=== PATIENT | male | born 1960 | race Caucasian/White ===

== ENCOUNTER 2017-03-13 14:50 | Inpatient (IN) | payer OTHER ==
[~2017-03-13] VITALS: Ht 180.3 cm; Wt 132.8 kg
--- NOTE | ~2017-03-13 | CT98 ---
[facility] A Service of [facility] RADIOLOGY TEXT RESULTS PATIENT: SHANTELL OSORIO LOCATION: [facility] 337-01 : [birth year] UNIT #: [id number] AGE: [address]: JOSE BAXTER V SEX: M ORDER DR: [id number] [facility] [address] [place], [place] [address] [id number] I MR#: [id number] Acc #: [id number] NAME: SHANTELL OSORIO : 1960 SEX: M STUDY DATE/TIME: 03/16/2017 18:58 UNIT: [address] ROOM: [facility] STUDY DESCRIPTION: CT Lumbar Spine Wo Cont Attending Physician: Jose Baxter M.D. Ordering Physician: Tanesha Forrest M.D. Primary Care Physician: No Primary Care Physician MEDICAL IMAGING REPORT This report is preliminary unless electronic signature is present EXAM Lumbar spine CT, 03/16 at 18:58. INDICATIONS Patient fell in room today and is having low back pain and tenderness. TECHNIQUE Axial images were obtained through the lumbar spine without contrast. Multiplanar reformats were obtained. This CT exam was performed with one or more of the following radiation dose reduction techniques: automatic exposure control, adjustment of mA and/or kV according to patient size, and iterative reconstruction. COMPARISON Comparison made with reformatted CT images from 08/28/2016. FINDINGS The patient is status post lumbar fusion. No hardware is present. There is a stable sclerotic lesion in the right side of S1. No acute fractures are seen. There is fairly extensive osteophyte formation. IMPRESSION Extensive degenerative disease and postsurgical change. No acute fracture or subluxation. Dictated by... Milan Pineda Jr., M.D. THIS IS AN ELECTRONICALLY VERIFIED REPORT Milan Pineda Jr., M.D. at 03/17/2017 4:12 PM SANDEEP/kyra [facility] A Service of [facility] RADIOLOGY TEXT RESULTS PATIENT: SHANTELL OSORIO LOCATION: [place] [id number] : [birth year] UNIT #: [id number] AGE: [address]: JOSE BAXTER V SEX: M ORDER DR: TD: 03/17/2017 00:00 JOB #: [id number] MEDICAL IMAGING REPORT Page 1 of 1 COPY
--- NOTE | ~2017-03-13 | CR72 ---
[facility] A Service of [facility] & [facility] RADIOLOGY TEXT RESULTS PATIENT: SHANTELL OSORIO LOCATION: [place] [address]- : 60 UNIT #: [id number] AGE: [address]: FERNANDEZ BAXTERUJ V SEX: M ORDER DR: [id number] [facility] [address] [place], [place] [address] [id number] I MR#: [id number] Acc #: [id number] NAME: SHANTELL OSORIO. : 1960 SEX: M STUDY DATE/TIME: 03/13/2017 23:19 UNIT: [facility] ROOM: [facility] STUDY DESCRIPTION: CR Chest Single View Portable Attending Physician: Tanesha Forrest M.D. Ordering Physician: Zhao Cordero M.D. Primary Care Physician: Primary Care Physician No MEDICAL IMAGING REPORT This report is preliminary unless electronic signature is present EXAM Portable chest x-ray, 03/13/2017 HISTORY PICC placement. Cough, short of air, chest pain. FINDINGS AP radiograph of the chest is present. Comparison 03/13/2017 1608 hours. Right upper extremity approach PICC terminates in superior vena cava. Heart borderline enlarged. Lungs slightly lower in volume than on prior study. Pulmonary vasculature is mildly prominent. Increased interstitial and airspace densities bilateral lung bases. Some component may be atelectatic in nature given the lower lung volumes. Basilar edema or bibasilar pneumonitis is a consideration. Findings more pronounced on left than right. Small left pleural effusion. No pneumothorax. Dictated by... Froilan Gutiérrez M.D. THIS IS AN ELECTRONICALLY VERIFIED REPORT Froilan Gutiérrez M.D. at 03/15/2017 1:22 PM JORGE/merly TD: 03/14/2017 02:24 JOB #: [id number] MEDICAL IMAGING REPORT Page 1 of 1 COPY
--- NOTE | ~2017-03-13 | CO ---
Unit #: [id number] #: [id number] Patient: SHANTELL OSORIO [id number] [address] [place], [place] [address] [id number] I MR#: [id number] NAME: SHANTELL OSORIO. ROOM: [facility]IC3 Age: 56 Sex: M Admission Date: 03/13/2017 : 1960 Attending Physician: Nigel Tan M.D. Primary Care Physician: Sabi Primary Care Physician Consultation Date: 03/14/2017 CONSULTATION REPORT REASON FOR CONSULT ICU management. HISTORY OF PRESENT ILLNESS This is a 56-year-old male with past medical history significant for morbid obesity, sleep apnea, COPD, chronic hypoxic respiratory failure who presented to the emergency room with worsening shortness of breath for the last few days. Patient stated that he was moving from another town to [place] and he forgot to bring his oxygen, and he has been off his oxygen for the last three days. He is coughing and sometimes with productive sputum of light greenish. He denied any fever, chills, or night sweats. No chest pain. No nausea, vomiting, or diarrhea. Patient takes Lasix and he is faithful with his medication; however, he is not so much with his diet. In the emergency room, his chest x-ray was consistent with interstitial infiltrate concerning for pulmonary versus pulmonary edema versus atelectasis. PAST MEDICAL HISTORY 1. Chronic hypoxic respiratory failure. 2. COPD. 3. Obstructive sleep apnea. 4. Morbid obesity. 5. Chronic kidney disease. 6. Depression. 7. Benign prostatic hypertrophy. 8. Pancreatitis. 9. Diabetes. 10. Hypertension. PAST SURGICAL HISTORY 1. Left heart cath. 2. Back surgery. 3. Appendectomy. 4. Knee surgery. 5. Cholecystectomy. SOCIAL HISTORY Patient is currently living with his sister. He has a history of smoking three packs of cigarettes daily, but he has cut back to half pack. He denies any alcohol abuse. He walks with a cane. His code status is full and no history of street drug abuse. Unit #: [id number] #: [id number] Patient: SHANTELL OSORIO FAMILY HISTORY Lung cancer. ALLERGIES No known drug allergies. HOME MEDICATIONS 1. Flomax. 2. Amitriptyline. 3. Zantac. 4. Potassium. 5. Pantoprazole. 6. Spiriva. 7. Levemir. 8. Humalog. 9. Lasix. 10. Finasteride. 11. Zestril. 12. Metformin. 13. Lopressor. 14. Prednisone. 15. ProAir. REVIEW OF SYSTEMS A 12-point review of systems was obtained and were negative except for what was mentioned in the HPI. PHYSICAL EXAMINATION GENERAL: The patient currently feeling better, in no acute distress compared to yesterday. HEENT: Atraumatic, normocephalic. PERRLA. EOMI. NECK: Supple. No JVD. No lymphadenopathy. CHEST: Diffuse bilateral wheezing and rhonchi. HEART: S1, S2. No murmur, gallops, or rubs. ABDOMEN: Soft, nontender. Bowel sounds are positive. No hepatosplenomegaly. EXTREMITIES: No edema or cyanosis but patient has chronic venous stasis changes. SKIN: No rashes. CENTRAL NERVOUS SYSTEM: Awake, alert, oriented x3. No focal motor/sensory deficits. DIAGNOSTIC STUDIES LABORATORY: Creatinine 1.5, potassium 3.9. White blood count 8. IMAGING: Chest x-ray is noted and reviewed by me. ASSESSMENT 1. Acute on chronic hypoxic hypercarbic respiratory failure. 2. Acute exacerbation of chronic obstructive pulmonary disease. 3. Acute kidney injury. 4. Obstructive sleep apnea. 5. Morbid obesity. 6. Nicotine abuse. 7. Depression. 8. Prostatic hypertrophy. Unit #: [id number] #: [id number] Patient: SHANTELL OSORIO PLAN 1. Continue the patient on BiPAP and (1) as tolerated. 2. Will hold Lasix and hydrate gently as patient appears more on the dehydrated side. 3. IV steroid bronchodilator. 4. Will change Levaquin to azithromycin as I suspect patient has a pneumonia based on his normal procalcitonin, normal white blood counts, and lack of fever. His chest x-ray is not very suggestive of pneumonia; however, will need to continue watching him very closely. 5. Bronchodilator and mucolytics. 6. CPAP at night. 7. Deep venous thrombosis prophylaxis. I would like to thank you for allowing me to be a part of this patient's care. Dictated by... Yaya Fairchild M.D. Divya TD: 03/14/2017 13:02 JOB #: [id number] CONSULTATION REPORT Page 1 of 1 X YAYA MORENO MD CONSULTATION REPORT
--- NOTE | ~2017-03-13 | CR72 ---
[facility] A Service of [facility] RADIOLOGY TEXT RESULTS PATIENT: SHANTELL OSORIO LOCATION: [place] [address]- : [birth year] UNIT #: [id number] AGE: [address]: FERNANDEZ BAXTERUJ V SEX: M ORDER DR: [id number] [facility] [address]. [place], [place] [address] [id number] I MR#: [id number] Acc #: [id number] NAME: SHANTELL OSORIO. : 1960 SEX: M STUDY DATE/TIME: 03/13/2017 16:08 UNIT: [facility] ROOM: 24[address] STUDY DESCRIPTION: CR Chest Single View Portable Attending Physician: Tanesha Forrest M.D. Ordering Physician: Zhao Cordero M.D. Primary Care Physician: Primary Care Physician No MEDICAL IMAGING REPORT This report is preliminary unless electronic signature is present EXAM Portable chest HISTORY Shortness of air chest pain. Shortness of air for 3 days, chest pain over the last hour. Longstanding smoker. COMPARISON 08/25/2016 FINDINGS Portable view of the chest demonstrates left basilar atelectasis and a small amount of right basilar atelectasis. Heart and mediastinum unremarkable. No significant effusions. No pneumothorax. Dictated by... Carissa Montes M.D. THIS IS AN ELECTRONICALLY VERIFIED REPORT Carissa Montes M.D. at 03/15/2017 4:02 PM CHARISSE/gudelia TD: 03/13/2017 19:04 JOB #: [id number] MEDICAL IMAGING REPORT Page 1 of 1 COPY
--- NOTE | ~2017-03-13 | CT107 ---
[facility] A Service of [facility] RADIOLOGY TEXT RESULTS PATIENT: SHANTELL OSORIO LOCATION: [facility] 337 : [birth year] UNIT #: [id number] AGE: [address]: JOSE BAXTER V SEX: M ORDER DR: [id number] [facility] [address]. [place], [place] [address] [id number] I MR#: [id number] Acc #: [id number] NAME: SHANTELL OSORIO. : 1960 SEX: M STUDY DATE/TIME: 03/16/2017 18:58 UNIT: [address] ROOM: [facility] STUDY DESCRIPTION: CT Pelvis Wo Cont Attending Physician: Jose Baxter M.D. Ordering Physician: Tanesha Forrest M.D. Primary Care Physician: Primary Care Physician No MEDICAL IMAGING REPORT This report is preliminary unless electronic signature is present EXAM CT pelvis without contrast HISTORY Bilateral pelvic pain after fall today. TECHNIQUE This CT exam was performed with one or more of the following radiation dose reduction techniques: automatic control, adjustment of mA and/or kV according to patient size, and iterative reconstruction. FINDINGS CT pelvis without contrast demonstrates satisfactory bone alignment. No fracture. Kevr-gs-aarfjvpw degenerative changes in the hips bilaterally and in the sacroiliac joints. Postop changes in the partly visualized lumbar spine. Degenerative changes in the pubic symphysis. IMPRESSION 1. No acute findings. No fracture. 2. Multifocal qfcd-er-wyryqddc degenerative changes. Dictated by... Tye Ruvalcaba M.D. THIS IS AN ELECTRONICALLY VERIFIED REPORT Tye Ruvalcaba M.D. at 03/17/2017 8:39 PM DFL/gudelia TD: 03/17/2017 00:06 JOB #: [id number] MEDICAL IMAGING REPORT [facility] A Service of [facility] RADIOLOGY TEXT RESULTS PATIENT: SHANTELL OSORIO LOCATION: [facility] 337 : [birth year] UNIT #: [id number] AGE: [address]: JOSE BAXTER V SEX: M ORDER DR: Page 1 of 1 COPY
--- NOTE | ~2017-03-13 | EKG ---
PATIENT: SHANTELL OSORIO UNIT #: [id number] Ventricular Rate: 113 BPM Atrial Rate: 113 BPM P-R Interval: 126 ms QRS Duration: 72 ms Q-T Interval: 328 ms QTC Calculation(Bezet): 449 ms P [place]: 63 degrees Calculated R [place]: 33 degrees Calculated T [place]: 64 degrees Diagnosis Line: Sinus tachycardia Diagnosis Line: Otherwise normal ECG Diagnosis Line: Diagnosis Line: Confirmed by VERONICA MENDOZA MD ([id number]) on 03/14/2017 Diagnosis Line: 7:38:09 PM INTERPRETING MD: REJI LIANG
--- NOTE | ~2017-03-13 | HP ---
Unit #: [id number] #: [id number] Patient: SHANTELL OSORIO [id number] [place] [address]. [place], [place] [address] [id number] I MR#: [id number] NAME: SHANTELL OSORIO. ROOM: 08147 Age: 56 Sex: M Admission Date: 03/13/2017 : 1960 Attending Physician: Tanesha Forrest M.D. HISTORY AND PHYSICAL CHIEF COMPLAINT Shortness of breath, chest pain. HISTORY OF PRESENT ILLNESS The patient is a 56-year-old male with a past medical history of chronic respiratory failure, COPD, chronic kidney disease, obstructive sleep apnea, chronic back pain, BPH, depression, pancreatitis, diabetes, and hypertension, who presented to the emergency department for evaluation of the above. The patient was hospitalized at [facility] December 16-2016, for COPD exacerbation. The patient states that he returned to baseline. He apparently moved to [place] over the weekend. He did not have home oxygen set up. He is typically on three liters of oxygen per nasal cannula. He has been without oxygen for several days. He has had about a three-day history of increasing shortness of breath and nonproductive cough. He denies any fever. Today, he developed chest pain. It is in his mid chest. He describes it as "squeezing." There are no exacerbating or alleviating factors. He states that it is similar to when he has had pancreatitis in the past. The pain radiates to his abdomen. He is somewhat diaphoretic in association with the pain. He denies any vomiting, but he has had nausea. He denies any urinary symptoms and no change in his weight. In the emergency department, initial pulse and blood pressure were 115 and 114/95, respectively, oxygen saturation was 91% on three liters. Chest x-ray shows left base atelectasis. EKG shows sinus tachycardia with a rate of 113 beats per minute. Lactic acid was 2.5. Initial arterial blood gas showed a pH of 7.38, PCO2 of 61.1, and PO2 of 62.9 on three liters. He was placed on BiPAP. He also received one liter of normal saline, as well as 125 mg of Solu-Medrol and 4 mg of morphine. He is being admitted to [facility] for evaluation and further treatment. PAST MEDICAL HISTORY 1. Admission to [facility] December 16-2016, for COPD. 2. Admission to [facility] August 24-2016, for abdominal pain and COPD. 3. Chronic obstructive pulmonary disease requiring intubation in the past. The patient has seen Dr. Self here at [facility]. 4. Chronic respiratory failure on three liters of oxygen per nasal cannula continuous. Unit #: [id number] #: [id number] Patient: SHANTELL OSORIO 5. Obstructive sleep apnea, on CPAP. 6. Chronic back pain, status post intrathecal pain pump, followed by Dr. Marquez. 7. Chronic kidney disease appears to be stage 3 with a baseline creatinine around 1.2. The patient had a rn care transition in [place] but is not established here. 8. Depression. 9. Benign prostatic hypertrophy. 10. Pancreatitis. 11. Diabetes. 12. Hypertension. PAST SURGICAL HISTORY 1. Cardiac catheterization in August 2015 per records from [facility]. Details of the cardiac cath are not known. The patient denies any coronary artery disease. 2. Back surgery. 3. Intrathecal pain pump. 4. Appendectomy. 5. Knee surgery. 6. Cholecystectomy. SOCIAL HISTORY The patient is currently living with his sister. He has a history of smoking three packs of cigarettes daily but has cut back to a half pack. He denies alcohol use. He walks with a cane. His code status is a Full Code. FAMILY HISTORY Notable for his mother and father both having lung cancer. ALLERGIES No known allergies. HOME MEDICATIONS 1. Flomax 0.4 mg twice daily. 2. Amitriptyline 150 mg daily. 3. Zantac 150 mg twice daily. 4. Potassium 20 mEq daily. 5. Pantoprazole 40 mg daily. 6. Spiriva 2 puffs inhaled daily. 7. Levemir 80 units subcutaneous twice daily. 8. Humalog 35 units subcutaneous t.i.d. 9. Lasix 40 mg daily. 10. Finasteride 5 mg daily. 11. Zestril 5 mg daily. 12. Glucophage 500 mg twice daily. 13. Lopressor 50 mg twice daily. 14. Prednisone 5 mg daily. 15. ProAir 2 puffs q.6 hours p.r.n. REVIEW OF SYSTEMS A complete review of systems is negative except as indicated in the History of Present Illness. The patient denies a history of heart failure. He denies any change in his weight. He states that his blood sugars are typically in the 100s. PHYSICAL EXAMINATION Unit #: [id number] #: [id number] Patient: SHANTELL OSORIO VITAL SIGNS: Temperature is 98.1, pulse 115, respirations 20, blood pressure 114/95, and oxygen saturation 91% on 3 liters. GENERAL: Patient is a male who is currently on BiPAP. HEENT: Head is atraumatic. Mucous membranes are moist. NECK: Supple. Trachea is midline. CARDIOVASCULAR: Regular rate and rhythm. LUNGS: Scattered wheezes and rhonchi. Breathing is mildly labored with conversation. ABDOMEN: Obese, soft, and nontender with bowel sounds present in all four quadrants. EXTREMITIES: Nontender with no pedal edema. NEUROLOGIC: Patient is awake and alert. He follows commands. PSYCHIATRIC: Patient is somewhat anxious but cooperative. SKIN: Diaphoretic. DIAGNOSTIC STUDIES LABORATORY: Complete blood count notable for hemoglobin and hematocrit of 12.4 and 38.5, respectively, MCV is 79, and RDW 20.9. Arterial blood gas shows a pH of 7.38, PCO2 of 61.1, and PO2 of 62.9 on 3 liters of oxygen per nasal cannula. Most recent arterial blood gas shows a pH of 7.328, PCO2 of 66.4, and PO2 of 86.6 on BiPAP at 12/5 with an FIO2 of 60%. Troponin is less than 0.05. INR is 1. Comprehensive metabolic panel notable for a chloride of 97, CO2 of 34, glucose 169, and BUN and creatinine 24 and 1.5, respectively. Lactic acid is 2.5. BNP is 8. IMAGING: Chest x-ray shows left base atelectasis. CARDIOLOGY: EKG shows sinus tachycardia with a rate of 113 beats per minute. ASSESSMENT The patient is a 56-year-old male with: 1. Acute on chronic respiratory failure, hypoxic and hypercapnic. 2. Chronic obstructive pulmonary disease exacerbation. The patient received 125 mg of Solu-Medrol in the emergency department. He continues to smoke. 3. Chest pain. The patient had a cardiac catheterization in August 2015 (no records). EKG and cardiac enzymes thus far are negative. 4. Lactic acidosis. The patient's lactic acid is 2.5. 5. Chronic kidney disease stage 3 with a baseline creatinine around 1.2. 6. Obstructive sleep apnea, on CPAP. 7. Chronic back pain, status post intrathecal pain pump, followed by Dr. Marquez. 8. Benign prostatic hypertrophy. 9. Depression. 10. History of pancreatitis. 11. Diabetes. 12. Hypertension. PLAN 1. Admit to ICU. 2. N.p.o. except medications. 3. Normal saline at 75 mL/hour. 4. Repeat blood gas now. 5. Consult Dr. Self regarding acute on chronic respiratory failure. 6. DuoNebs q.4 hours. 7. Solu-Medrol 80 mg IV q.12 hours. 8. Mucinex 600 mg p.o. b.i.d. Unit #: [id number] #: [id number] Patient: SHANTELL OSORIO 9. Levaquin 750 mg IV daily for possible clinical pneumonia pending further workup. 10. Procalcitonin level. 11. Sepsis protocol with repeat lactic acid. 12. Check amylase and lipase. 13. Serial cardiac enzymes. 14. Strict I/Os. 15. Urinalysis with culture and sensitivity. 16. Urine toxicology screen. 17. Hemoglobin A1c. 18. Low-dose sliding scale insulin with Accu-Cheks. 19. Protonix for GI prophylaxis since the patient will be on Solu-Medrol. 20. SCDs for DVT prophylaxis. 21. Additional workup and consultants based on above. 22. Regarding code status, the patient is a Full Code. Forty-five (45) minutes critical care time spent in the care of this patient (5:50-6:35 p.m.). Dictated by Jose Bird/may TD: 03/13/2017 20:20 JOB #: [id number] HISTORY AND PHYSICAL Page 1 of 1 X Tanesha Forrest MD HISTORY AND PHYSICAL
[~2017-03-13 14:50] MED LIST: AMITRYPTYLINE PO; ASPIRIN81 M2 PO; BACTRIM DS TABL1 TA1 PO; BREO ELLIPTA 11 EACH INH; DOCUSATE SODIU100 MG PO; FLEXERIL10 MG PO; FLOMAX0.4 M1 PO; GLUCOPHAGE500 M1 PO; HUMALOG100 U/M1; HYDROCODON-ACE1 EAC7 PO; K-LOR20 MEQ PO; LASIX PO; LEVEMIR SUBQ; LISINOPRIL-HCTZ1 T15 PO; LOPID600 MG PO; LOPRESSOR PO; LOVENOX40 MG/0.4 INJ; METFORMIN HCL1000 M1 PO; MIRALAX17 GM PO; PREDNISONE10 MG PO; PREVACID SOLUTA30 MG PO; PRINIVIL5 MG PO; PROAIR RESPICL90 MCG INH; PROTONIX PO; PROVENTIL INH0.5 ML NEB; SYMBICORT INH; TOPROL XL 50 MG50 MG PO; VOLTAREN75 MG PO; XANAX0.5 M1 PO; ZANTAC150 MG PO
[2017-03-13 15:48] LABS: BASOPHIL% 0.6 % (0-2.5); EOSINOPHIL# 0.1 X10e3 (0-0.7); EOSINOPHIL% 0.7 % (0.0-7.0); HEMATOCRIT 38.5 % (38.0-50.0); HEMOGLOBIN 12.4 gm/dL (13.0-16.0); LYMPHOCYTE# 1.3 X10e3 (1.0-3.5); LYMPHOCYTE% 15.7 % (17.0-45.0); MEAN CORPUSCULAR HEMOGLOBIN 25.5 PG (28-34); MEAN CORPUSCULAR HGB CONC 32.3 g/dL (30-36); MEAN PLATELET VOLUME 8.5 FL (6.5-11.5); MONOCYTE# 0.5 X10e3 (0-1.0); MONOCYTE% 5.9 % (3.0-12.0); NEUTROPHIL# 6.1 X10e3 (1.5-7.1); NEUTROPHIL% 77.1 % (40-75); PLATELET COUNT 167 X10e3 (140-420); RED BLOOD COUNT 4.87 X10e (3.90-5.60); RED CELL DISTRIBUTION WIDTH 20.9 % (11.0-15.5)
[2017-03-13 15:49] LABS: ARTERIAL BLD GAS O2 SATURATION 84.4 % (90.0-100.0); ARTERIAL BLOOD GAS CARBOXY HB 7.3 %sat (0.0-9.0); ARTERIAL BLOOD GAS HCO3 36.1 mmol/L; ARTERIAL BLOOD GAS MET HB 1.2 %sat (0.0-2.0)
[2017-03-13 15:50] LABS: DIFF IND NO
[2017-03-13 15:51] LABS: ARTERIAL BLOOD GAS ALLEN TEST NORMAL; ARTERIAL BLOOD GAS ART SITE RIGHT RADIAL; ARTERIAL BLOOD GAS DELIVERY NASAL CANNULA; ARTERIAL BLOOD GAS PCO2 61.1 mmHg (35.0-45.0); ARTERIAL BLOOD GAS PO2 62.9 mmHg (80.0-100); ARTERIAL DRAW? YES
[2017-03-13 15:58] LABS: POC - CKMB 4.9 ng/mL (0.0-7.9); POC - TROPONIN <0.05 ng/mL (<=0.05)
[2017-03-13 16:02] LABS: PARTIAL THROMBOPLASTIN TIME 22.4 SECONDS (23.5-31.3); PROTHROMBIN TIME (PATIENT) 10.6 SECONDS (10.0-11.7)
[2017-03-13 16:12] LABS: ALBUMIN SERUM 4.3 g/dL (3.5-5.0); BILIRUBIN, DIRECT 0.1 mg/dL (0.0-0.2); BILIRUBIN,INDIRECT 0.4 mg/dL (0.0-0.9); BILIRUBIN,TOTAL 0.5 mg/dL (0.2-2.0); CREATININE SERUM 1.5 mg/dL (0.6-1.4); GLOM FILT RATE Estimated 51.3 mL/min (>60); POTASSIUM 4.3 mmol/L (3.5-5.1)
[2017-03-13] MEDS ORDERED: PATIENT'S PHARMACY (16:23)
[2017-03-13] MEDS ORDERED: AMITRIPTYLINE150 MG PO (16:24)
[2017-03-13] MEDS ORDERED: FLOMAX0.4 M1 PO (16:24)
[2017-03-13] MEDS ORDERED: PANTOPRAZOLE SO40 MG PO (16:24)
[2017-03-13] MEDS ORDERED: ZANTAC150 M1 PO (16:24)
[2017-03-13] MEDS ORDERED: KCL PO (16:24)
[2017-03-13] MEDS ORDERED: LASIX20 MG PO (16:25)
[2017-03-13] MEDS ORDERED: HUMALOG KW100 UNIT/1 SUBQ (16:25)
[2017-03-13] MEDS ORDERED: LEVEMIR FL100 UNIT/1 SUBQ (16:25)
[2017-03-13] MEDS ORDERED: SPIRIVA RESPIMAT4 G1 INH (16:25)
[2017-03-13] MEDS ORDERED: PREDNISONE PO (16:26)
[2017-03-13] MEDS ORDERED: PROAIR RESPICL90 MCG INH (16:26)
[2017-03-13] MEDS ORDERED: METFORMIN PO (16:26)
[2017-03-13] MEDS ORDERED: LISINOPRIL PO (16:26)
[2017-03-13] MEDS ORDERED: FINASTERIDE5 M1 PO (16:26)
[2017-03-13] MEDS ORDERED: LOPRESSOR PO (16:26)
[2017-03-13 17:15] LABS: ARTERIAL BLD GAS O2 SATURATION 89.9 % (90.0-100.0); ARTERIAL BLOOD GAS CARBOXY HB 5.7 %sat (0.0-9.0); ARTERIAL BLOOD GAS HCO3 34.8 mmol/L; ARTERIAL BLOOD GAS MET HB 0.7 %sat (0.0-2.0); ARTERIAL BLOOD GAS PO2 86.6 mmHg (80.0-100); ARTERIAL BLOOD GAS pH 7.328 (7.350-7.450)
[2017-03-13 17:16] LABS: ARTERIAL BLOOD GAS ALLEN TEST NORMAL; ARTERIAL BLOOD GAS ART SITE RIGHT RADIAL; ARTERIAL BLOOD GAS PCO2 66.4 mmHg (35.0-45.0); ARTERIAL DRAW? YES
[2017-03-13 17:23] LABS: POC - CKMB 3.3 ng/mL (0.0-7.9); POC - TROPONIN <0.05 ng/mL (<=0.05)
[2017-03-13 18:59] LABS: ARTERIAL BLOOD GAS CARBOXY HB 4.2 %sat (0.0-9.0); ARTERIAL BLOOD GAS HCO3 35.3 mmol/L; ARTERIAL BLOOD GAS MET HB 0.6 %sat (0.0-2.0); ARTERIAL BLOOD GAS pH 7.329 (7.350-7.450)
[2017-03-13 19:00] LABS: ARTERIAL BLOOD GAS ALLEN TEST NORMAL; ARTERIAL BLOOD GAS ART SITE RIGHT RADIAL; ARTERIAL BLOOD GAS DELIVERY 15/5; ARTERIAL BLOOD GAS PCO2 67.2 mmHg (35.0-45.0); ARTERIAL DRAW? YES
[2017-03-13 19:28] LABS: PROCALCITONIN 0.17 NG/ML
[2017-03-14 01:36] LABS: %MB 2.9 % (0.0-4.0); MB 4.6 ng/ml
[2017-03-14 02:04] LABS: URINE APPEARANCE CLEAR; URINE BILIRUBIN NEG (NEG); URINE BLOOD NEG (NEG); URINE COLOR YELLOW; URINE GLUCOSE NEG (NEG); URINE KETONE NEG (NEG); URINE LEUKOCYTE ESTERASE NEG (NEG); URINE NITRATE NEG (NEG); URINE PROTEIN NEG (NEG); URINE SPECIFIC GRAVITY 1.021 (1.003-1.035); URINE UROBILINOGEN 0.2 MG/DL (NEG)
[2017-03-14 02:18] LABS: AMPHETAMINE NEG (NEG); BARBITURATES NEG (NEG); BENZODIAZEPINES NEG (NEG); COCAINE NEG (NEG); MARIJUANA NEG (NEG); OPIATES POS (NEG); TRICYCLIC ANTIDEPRESSANTS POS (NEG); U METHADONE NEG (NEG)
[2017-03-14 06:24] LABS: DIFF IND NO; HEMATOCRIT 34.2 % (38.0-50.0); HEMOGLOBIN 10.9 gm/dL (13.0-16.0); LYMPHOCYTE# 0.4 X10e3 (1.0-3.5); LYMPHOCYTE% 5.4 % (17.0-45.0); MEAN CELL VOLUME 79.4 FL (83-96); MEAN CORPUSCULAR HEMOGLOBIN 25.4 PG (28-34); MEAN CORPUSCULAR HGB CONC 31.9 g/dL (30-36); MEAN PLATELET VOLUME 8.6 FL (6.5-11.5); MONOCYTE# 0.1 X10e3 (0-1.0); MONOCYTE% 1.7 % (3.0-12.0); NEUTROPHIL# 7.3 X10e3 (1.5-7.1); NEUTROPHIL% 92.9 % (40-75); PLATELET COUNT 132 X10e3 (140-420); RED BLOOD COUNT 4.31 X10e (3.90-5.60); RED CELL DISTRIBUTION WIDTH 21.2 % (11.0-15.5); WHITE BLOOD COUNT 7.9 X10e3 (4.0-10.5)
[2017-03-14 07:15] LABS: ALBUMIN SERUM 3.4 g/dL (3.5-5.0); BILIRUBIN,TOTAL 0.6 mg/dL (0.2-2.0); CALCIUM SERUM 7.9 mg/dL (8.4-10.2); GLOM FILT RATE Estimated 83.8 mL/min (>60); POTASSIUM 3.9 mmol/L (3.5-5.1); PROTEIN TOTAL SERUM 6.7 g/dL (6.0-8.3)
[2017-03-14 07:43] LABS: %MB 3.7 % (0.0-4.0); MB 4.7 ng/ml
[2017-03-15 14:11] LABS: ARTERIAL BLOOD GAS CARBOXY HB 1.5 %sat (0.0-9.0); ARTERIAL BLOOD GAS HCO3 28.8 mmol/L
[2017-03-15 14:13] LABS: ARTERIAL BLOOD GAS ALLEN TEST NORMAL; ARTERIAL BLOOD GAS ART SITE LEFT RADIAL; ARTERIAL BLOOD GAS DELIVERY NASAL CANNULA; ARTERIAL BLOOD GAS PCO2 52.3 mmHg (35.0-45.0); ARTERIAL DRAW? YES
[2017-03-19] MEDS ORDERED: PERCOCET 5/321 UDTAB PO (12:05)
[2017-03-19] MEDS ORDERED: PREDNISONE10 M1 PO (12:06)
== END 2017-03-19 13:13 | disposition home or self-care (01) | DRG 189 ==
LOC: CED 14:50 → CEDOF 18:30 → CICCU3 18:30 → C3A PCU 18:30 → CED 18:58 → CICCU3 18:58 → CEDOF 18:58 → CICCU3 23:47 → C3A PCU 03-14 18:20
PROVIDERS: Emergency Medicine; Family Medicine; Internal Medicine
PROC: 02HV33Z Insertion of Infusion Device into Superior Vena Cava, Percutaneous Approach (ICD-10-PCS; principal; 2017-03-13)
DX: J96.21 Acute and chronic respiratory failure with hypoxia (principal); E87.2 Acidosis; E11.22 Type 2 diabetes mellitus with diabetic chronic kidney disease; N17.9 Acute kidney failure, unspecified; N18.3 Chronic kidney disease, stage 3 (moderate); J44.1 Chronic obstructive pulmonary disease with (acute) exacerbation; J96.22 Acute and chronic respiratory failure with hypercapnia; I12.9 Hypertensive chronic kidney disease with stage 1 through stage 4 chronic kidney disease, or unspecified chronic kidney disease; G47.33 Obstructive sleep apnea (adult) (pediatric); G89.29 Other chronic pain; M54.9 Dorsalgia, unspecified; N40.0 Benign prostatic hyperplasia without lower urinary tract symptoms; F32.9 Major depressive disorder, single episode, unspecified; E11.65 Type 2 diabetes mellitus with hyperglycemia; Z79.4 Long term (current) use of insulin; F17.210 Nicotine dependence, cigarettes, uncomplicated; E66.01 Morbid (severe) obesity due to excess calories; Z68.36 Body mass index [BMI] 36.0-36.9, adult; Z90.49 Acquired absence of other specified parts of digestive tract; Z80.1 Family history of malignant neoplasm of trachea, bronchus and lung
CPT/HCPCS: 36415; 36600; 71010; 72131; 72192; 80048; 80053; 80076; 80307; 81003; 82150; 82308; 82550; 82553; 82803; 82947; 83036; 83605; 83690; 83880; 84484; 85025; 85610; 85730; 87040; 87086; 93005; 94640; 94660; 94664; 94667; 94668; 94760; 94761; 96361; 96374; 96375; 97162; 97167; 99291; C9113; J0456; J1170; J1650; J1815; J1885; J1940; J1956; J2270; J2920; J2930; J3360

== ENCOUNTER 2017-03-23 21:47 | Inpatient (IN) | payer OTHER ==
[~2017-03-23] VITALS: Ht 172.7 cm; Wt 120.2 kg
--- NOTE | ~2017-03-23 | DS ---
Unit #: [id number] #: [id number] Patient: SHANTELL OSORIO [id number] [address] [place], [place] [address] [id number] I MR#: [id number] NAME: SHANTELL OSORIO. ROOM: 568 Age: 56 Sex: M Admission Date: 03/24/2017 : 1960 Discharge Date: 03/26/2017 Attending Physician: Rekha Thibodeaux M.D. Primary Care Physician: No Primary Care Physician DISCHARGE SUMMARY FINAL DIAGNOSES 1. Suicidal attempt. 2. Aspiration pneumonia. 3. Acute respiratory failure. SECONDARY DIAGNOSES 1. Diabetes mellitus type 2 on insulin. 2. Morbid obesity. 3. Chronic back pain. 4. History of depression. 5. Hypertension. 6. BPH. CONSULTANTS Dr. Cowart, Psych; Dr. Self, Pulmonary. HOSPITAL COURSE 56-year-old gentleman who is well known to me basically, really got frustrated at his life situation and took an overdose of pills intentionally. He was brought to the ER via EMS when family put a call through. In the emergency room, and was found to be agitated, eventually underwent protected airways and was subsequently intubated. He is extubated now and seems to be doing very well. He is able to test reality and admits to the attempts. He admits to the attempts. He has been seen by Dr. Cowart and the plan is for him [facility] He is evaluated and seemed to be suitable for discharge. Labs patent this a.m. His sugars are really on the high side. Back pain: He has a pain pump in situ. He has a remote control, which he uses to dose himself p.r.n. on demand dosing for his increased pain requirements. He feel about a week ago. CT scan of his lumbar spine does not show any fractures. He will be discharged in stable condition for inpatient stay in patient psych unit. MEDICATIONS ON DISCHARGE 1. Albuterol sulfate inhaler, two inhalation q.6 hourly p.r.n. wheezing. 2. DuoNeb q.4 hours p.r.n. 3. Prednisone 40 mg p.o. daily for five days and then taper. 4. Flomax 0.4 mg p.o. b.i.d. 5. Spiriva two puffs inhalation daily. 6. Neurontin 200 mg p.o. 3 times a day. 7. Amitriptyline 150 mg p.o. daily. 8. Cymbalta 30 mg p.o. daily. Unit #: [id number] #: [id number] Patient: SHANTELL OSORIO 9. Metformin 500 mg p.o. b.i.d. 10. Lopressor 50 mg p.o. b.i.d. 11. Lasix 40 mg p.o. daily. 12. Lisinopril 5 mg p.o. daily. 13. Levemir 80 units subcu b.i.d. 14. Humalog 35 units subcu t.i.d. q. a.c. 15. Zantac 150 mg p.o. b.i.d. 16. Finasteride 5 mg p.o. daily. 17. Percocet 5/325 1 every 4 hours as needed for back pain. 18. Augmentin 5/125 p.o. t.i.d. for 4 more days. 19. Protonix 40 mg p.o. daily. 20. Zyprexa 5 mg sublingual at bedtime. DISCHARGE STATUS Stable condition to [facility]. Time spent coordinating discharge about 33 minutes. He will be seen by psych prior to discharge and pulmonary prior to discharge. 21. 1. Dictated by... Jose Gregorio/dione TD: 03/26/2017 08:38 JOB #: [id number] DISCHARGE SUMMARY Page 1 of 1 X Daisha Shah MD X DISCHARGE SUMMARY
--- NOTE | ~2017-03-23 | EKG ---
PATIENT: SHANTELL OSORIO UNIT #: [id number] Ventricular Rate: 123 BPM Atrial Rate: 123 BPM P-R Interval: 166 ms QRS Duration: 92 ms Q-T Interval: 308 ms QTC Calculation(Bezet): 440 ms P [place]: 51 degrees Calculated R [place]: 38 degrees Calculated T [place]: 71 degrees Diagnosis Line: Sinus tachycardia Diagnosis Line: Poor R wave progression questionable lead position Diagnosis Line: or body habitus Diagnosis Line: Cannot rule out Septal infarct , age undetermined Diagnosis Line: Borderline ECG Diagnosis Line: When compared with ECG of 23-MAR-2017 21:51, Diagnosis Line: (unconfirmed) Diagnosis Line: No significant change was found Diagnosis Line: Confirmed by VERONICA MENDOZA MD ([id number]) on 03/25/2017 Diagnosis Line: 2:59:03 PM INTERPRETING MD: REJI LIANG
--- NOTE | ~2017-03-23 | DS ---
Unit #: [id number] #: [id number] Patient: SHANTELL OSORIO [id number] [address] [address] [id number] I MR#: [id number] NAME: SHANTELL OSORIO. ROOM: 568 Age: 56 Sex: M Admission Date: 03/24/2017 : 1960 Discharge Date: 03/27/2017 Attending Physician: Rekha Thibodeaux M.D. Primary Care Physician: No Primary Care Physician DISCHARGE SUMMARY ADDENDUM PLACE OF DISCHARGE [facility] HOSPITAL COURSE Please see Dr. Shah's discharge as dictated on March 26 for complete details. Essentially, for the past 24 hours, patient has been otherwise stable. He has been weaned off of his oxygen. Room air oxygen should be greater than 89%, which likely represents his baseline. Patient can be transferred to [facility] with pain pump in place. Instructions have been reviewed and discussed with him in detail. No further recommendations and/or inpatient hospitalization is required at this particular time. Dictated by... Jose Patel/tess TD: 03/29/2017 07:36 JOB #: [id number] DISCHARGE SUMMARY Page 1 of 1 X Rekha Thibodeaux MD X DISCHARGE SUMMARY
--- NOTE | ~2017-03-23 | CR72 ---
[facility] A Service of [facility] & [facility] RADIOLOGY TEXT RESULTS PATIENT: SHANTELL OSORIO LOCATION: [address] : [birth year] UNIT #: [id number] AGE: [address]: Rekha Thibodeaux MD SEX: M ORDER DR: [id number] [facility] [address] [facility]. [place], [place] [address] [id number] I MR#: [id number] Acc #: [id number] NAME: SHANTELL OSORIO. : 1960 SEX: M STUDY DATE/TIME: 03/24/2017 04:26 UNIT: [facility] ROOM: [facility] STUDY DESCRIPTION: CR Chest Single View Portable Attending Physician: Rekha Thibodeaux M.D. Ordering Physician: Edwardo Amador M.D. Primary Care Physician: No Primary Care Physician MEDICAL IMAGING REPORT This report is preliminary unless electronic signature is present EXAM Portable chest, 03/24/2017 at 04:26. INDICATIONS Shortness of air. Respiratory failure. FINDINGS AP portable chest compared with 03/23/2017. ET tube and left IJ line are unchanged. Cardiomegaly stable. There is persistent bibasilar atelectasis or infiltrate and small bilateral effusions. No pneumothorax. Dictated by... Milan Pineda Jr., M.D. THIS IS AN ELECTRONICALLY VERIFIED REPORT Milan Pineda Jr., M.D. at 03/25/2017 4:57 AM SANDEEP/kyra TD: 03/24/2017 23:50 JOB #: [id number] MEDICAL IMAGING REPORT Page 1 of 1 COPY
--- NOTE | ~2017-03-23 | CO ---
Unit #: [id number] #: [id number] Patient: SHANTELL OSORIO [id number] [address] [address] [id number] I MR#: [id number] NAME: SHANTELL OSORIO. ROOM: 568 Age: 56 Sex: M Admission Date: 03/24/2017 : 1960 Attending Physician: Rekha Thibodeaux M.D. Primary Care Physician: Primary Care Physician No Consultation Date: 03/27/2017 CONSULTATION REPORT REASON FOR CONSULTATION Followup. DISCUSSION Mr. Farley is a 56-year-old male, seen on 03/27/2017. The patient was pleasant and cooperative during interview, dressed in hospital attire, has a sitter due to suicidal ideation. The patient still somewhat anxious, nervous, sad, depressed, and having suicidal ideation, compliant with medication. The patient's perinatal social worker is currently looking for inpatient psychiatric facility. Vital signs; temperature 98.5, pulse 105, respirations 20, blood pressure 157/83, oxygen saturation 93%. REVIEW OF SYSTEMS Complete review of systems unremarkable. MENTAL STATUS EXAMINATION General appearance, the patient dressed casually. Attention span and concentration, fair. Speech, regular rate and coherent. Oriented in time, place, and person. Mood and affect, sad and dysphoric. Thought process, coherent. Thought content, the patient reported having suicidal ideation with no plans, but still sad, depressed, feeling of hopelessness and worthlessness. Denied any hallucination. Recent and remote memory, fair. Language, intact. Fund of knowledge, fair. Insight and judgment, fair to slightly impaired. DIAGNOSES Psychiatric: Major depressive disorder, recurrent, severe, F33.2; anxiety disorder, not otherwise specified, F40.01. ASSESSMENT/PLAN 1. Supportive psychotherapy and psychoeducation provided to the patient. 2. Educated about benefits and side effects of medication and course and prognosis of illness. 3. Advised to continue with current combination of medication. If needed, consider further adjustment of medication and transfer the patient to inpatient psychiatric facility as soon as bed available. Dictated by.Jose Bruner/ivette Unit #: [id number] #: [id number] Patient: SHNATELL OSORIO TD: 03/28/2017 08:14 JOB #: [id number] CONSULTATION REPORT Page 1 of 1 X Wilton Cowart MD CONSULTATION REPORT
--- NOTE | ~2017-03-23 | CO ---
Unit #: [id number] #: [id number] Patient: SHANTELL OSORIO [id number] [address] [address] [id number] I MR#: [id number] NAME: SHANTELL OSORIO. ROOM: 568 Age: 56 Sex: M Admission Date: 03/24/2017 : 1960 Attending Physician: Rekha Thibodeaux M.D. Primary Care Physician: No Primary Care Physician Consultation Date: 03/26/2017 CONSULTATION REPORT REASON FOR CONSULTATION Followup. DISCUSSION Mr. Farley is a 56-year-old white male seen in room 558, bed 1 on 03/26/2017 at [facility]. Patient dressed in hospital attire, still feeling sad/depressed but reports that medication is helping him, having suicidal thoughts nonspecific in nature. Patient is agreeable to go to inpatient psych for psychiatric stabilization. Patient's vital signs are 99.9, 101, 18, 150/77, oxygen saturation 100%. REVIEW OF SYSTEMS Complete review of systems is unremarkable. MENTAL STATUS EXAMINATION General appearance: Patient dressed casually. Attention span and concentration fair. Oriented in place and person. Mood and affect was labile. Thought process coherent. Thought content: Patient denied any thoughts of harming others but having passive SI. Recent and remote memory fair. Language intact. Fund of knowledge fair. Insight and judgment fair to slightly impaired. DIAGNOSIS PSYCHIATRIC: Major depressive disorder, recurrent, severe, F33.2. ASSESSMENT AND PLAN 1. Supportive psychotherapy and psychoeducation provided to patient. 2. Educated about benefits and side effects of medication, course and prognosis of illness. 3. Plan to transfer patient to inpatient psych as soon as bed is available. In the meantime, continue with the treatment here at [facility]. Please feel free to call if any questions, . Dictated by... Wilton Cowart M.D. Mary TD: 03/26/2017 15:51 JOB #: [id number] Unit #: [id number] #: [id number] Patient: SHANTELL OSORIO CONSULTATION REPORT Page 1 of 1 X Wilton Cowart MD CONSULTATION REPORT
--- NOTE | ~2017-03-23 | HP ---
Unit #: [id number] #: [id number] Patient: SHANTELL OSORIO [id number] [facility]. [place], [place] [address] [id number] I MR#: [id number] NAME: SHANTELL OSORIO. ROOM: [facility] Age: 56 Sex: M Admission Date: 03/24/2017 : 1960 Attending Physician: Rekha Thibodeaux M.D. Primary Care Physician: No Primary Care Physician HISTORY AND PHYSICAL CHIEF COMPLAINT Overdose. DISCUSSION This is a 56-year-old gentleman with a past medical history of chronic respiratory failure, COPD oxygen dependent, chronic kidney disease stage 3, also sleep apnea, morbid obesity, chronic back pain, benign prostatic hypertrophy, depression, diabetes, history of pancreatitis, hypertension, obstructive sleep apnea on CPAP who was recently admitted here in [facility] on 03/14/17 and was discharged on 03/19/17 but I do not have discharge summary available at this time. The patient was brought to the emergency room. EMS was called by the family. The patient was found lethargic and agitated and family called EMS. EMS brought to the patient to ER. There was a possibility of the drug overdose with (1) missing pills in (2) bottle. Family not available in the emergency room. In the ER, the patient was found to be agitated and eventually unable to protect airway and the patient is being intubated and currently on the vent. The family is not available at bedside. Overall, all of information obtained through talking to the nursing staff and reviewing old chart from recent admission. PAST MEDICAL HISTORY 1. History of chronic respiratory failure. 2. History of COPD, oxygen dependent. 3. Chronic kidney disease stage 3. 4. Obstructive sleep apnea on CPAP. 5. History of chronic back pain. 6. History of benign prostatic hypertrophy. 7. History of depression. 8. Diabetes. 9. History of pancreatitis. 10. Hypertension. 11. Morbid obesity. 12. History of chronic back pain status post intrathecal pain pump followed by Dr. Marquez. PAST SURGICAL HISTORY 1. History of cardiac cath in August 2015. 2. History of back surgery. 3. History of intrathecal pain pump. 4. Appendectomy. 5. History of knee surgery. 6. Cholecystectomy. Unit #: [id number] #: [id number] Patient: SHANTELL OSORIO SOCIAL HISTORY The patient is currently living here with his sister. He has a history of smoking three packs cigarettes daily, as per old record, but he has been cut down to half pack daily. No history of alcohol abuse. He walks with a cane. He is a FULL code status. FAMILY HISTORY Notable from what so far is reviewed and notable for mother and father having lung cancer. ALLERGIES No known drug allergy. MEDICATION His medication from last time admission was the followin. Flomax 0.4 mg twice daily. 2. Amitriptyline 150 mg daily. 3. Zantac 150 mg twice daily. 4. Spiriva two puffs daily. 5. Levemir two units subcu twice daily. 6. Humalog 35 units subcu t.i.d. 7. Lasix 40 mg daily. 8. Finasteride 5 mg daily. 9. Zestril 5 mg daily. 10. Glucophage 5 mg twice a day. 11. Lopressor 50 mg twice a day. 12. ProAir two puffs q.6 hours p.r.n. 13. Percocet. 14. Prednisone. These are all medication from previous list. Doses not available at this time. REVIEW OF SYSTEMS Unable to obtain from patient. The patient is currently on the vent. PHYSICAL EXAMINATION GENERAL APPEARANCE: The patient is on the vent, intubated. VITAL SIGNS: His current vitals are following: Temperature is 99. Heart rate is 145. Respiratory rate 25. Blood pressure 177/88. Oxygen saturation 98%. HEENT: Head is atraumatic, normocephalic. NECK: Supple. Trachea midline. HEART: S1, S2. Regular rate and rhythm. LUNGS: Poor entry bilaterally. ABDOMEN: Obese, soft, nontender. Positive ecchymosis in lower abdominal wall. EXTREMITIES: Bilateral lower extremities on the right side. Positive erythema, redness. On the left lower extremity, positive blisters and warm and red. NEUROLOGIC: Unable to do neuro exam. DIAGNOSTIC STUDIES LABORATORY: Workup is pending at time of dictation. His urine tox screen positive for benzodiazepine, positive for TCA. ASSESSMENT AND PLAN 1. Intentional drug overdose most likely Elavil. Unit #: [id number] #: [id number] Patient: SHANTELL OSORIO 2. Respiratory failure currently on the vent. We will ask Pulmonary, Dr. Self, to manage vent and continue propofol drip to (3) the patient. 3. Bilateral lower extremity venostasis dermatitis/cellulitis with blister on the left lower extremity. I will go ahead and start the patient empirically on IV Zosyn. 4. History of chronic respiratory failure. 5. History of COPD oxygen dependent at home. 6. History of chronic kidney disease stage 4. 7. Obstructive sleep apnea on CPAP at home. 8. Chronic back pain. 9. History of benign prostatic hypertrophy. 10. Depression. 11. History of pancreatitis in the past. 12. Hypertension. 13. Obesity. 14. DVT prophylaxis and GI prophylaxis. We will place the patient on Lovenox and Protonix. Currently, lab work is pending. We will follow up the labs. Dictated by Jose Abarca TD: 03/24/2017 13:23 JOB #: [id number] HISTORY AND PHYSICAL Page 1 of 1 X X HISTORY AND PHYSICAL
--- NOTE | ~2017-03-23 | A ---
[facility] Nutrition Therapy DATE: 03/24/17 Patient: SHANTELL Carrasco JAYGerardo Physician: EFRA Address: [address] Room/Bed: [address], Zip: [place] [address] Admit Date: 03/24/17 Date of : [birth year] Height: 5 8 Weight: 253 115 NUTRITIONAL ASSESSMENT: REASON: NO DIET ORDER IN ICU ASSESSMENT PT IS 56 Y.O. MALE ADMITTED FOR INTENTIONAL OD, RESPIRATORY FAILURE PMH: (PMH FROM 03/13-03/14/17): DM, COPD, CHRONIC RESP FAILURE, CKD STAGE 3, SHERLEY, HTN, CHF, PANCREATITIS, HX OF CHOLY, BPH Anthropometrics: 5'11" (PER PAST ADMITS + RD OBSERVATON), WT: 253# (115 KG), BMI: 35.3 Labs: GLU: 242, K+:3.2, ALB: 3.4, HgbA1c: 8.5 (03/13/17) Meds: PROPOFOL, PROTONIX, NOVOLOG, KCL, NACL I/O & Bowel function: 1218/1000 Skin Integrity: BLE CELLULITIS EDEMA: TRUNK GENERALIZED; BLE 2+ EDEMA Estimated Nutrition Needs: 6499-7547 KCAL (15-20 KCAL/KG BW) 117-150 G PRO (1.5-2.0 G PRO/IBW) FLUIDS CONSISTENT W/KCAL NEEDS OR MANAGE PER MD Assessment: CHART REVIEWED AND EVENTS NOTED. PT SEEN FOR NO DIET ORDER IN ICU ASSESSMENT. PT INTUBATED AND SEDATED W/PROPOFOL (RATE OF 29.3 ML/HR PROVIDING ~774 KCAL FROM LIPIDS) ADMITTED FOR ABOVE DX. NO FAMILY IN ROOM AT TIME OF VISIT. NO CURRENT PLANS IN PLACE TO EXTUBATE OR BEGIN ALTERNATIVE NUTRITION SUPPORT AT THIS TIME. PT HAS OG TUBE IN PLACE. PT NOT APPROPRIATE FOR DIET INTERVIEW AT THIS TIME. RD TO FOLLOW. SEE RECOMMENDATIONS BELOW. Dx: INADEQUATE ORAL INTAKE R/T CURRENT DIAGNOSIS, VENT DEPENDENCE AEB NO DIET ORDER IN ICU. Intervention: 1. NPO Monitoring, Evaluation and Goals: 1. ENTERAL NUTRITION; ONCE INITIATED, PROVIDE >80% TOTAL GOAL VOLUME X 24 HOURS 2. WEIGHTS; PROMOTE GRADUAL WEIGHT LOSS TOWARDS A HEALTHY BMI RANGE 3. LABS; GLU, K+ MONITOR: -WEIGHTS [facility] Therapy DATE: 03/24/17 Patient: SHANTELL OSORIO Physician: EFRA Address: [address] Room/Bed: [address], Zip: [place] [address] Admit Date: 03/24/17 Date of : [birth year] Height: 5 8 Weight: 253 115 -PLANS FOR SUPPORT -LABS -EXTUBATION? SEDATION RATE Recommendations: 1. ONCE MEDICALLY FEASIBLE AND PT EXTUBATED, ADVANCE DIET PER [employer] EVAL + CC+HH DIET 2' PMG 2. IF PT REMAINS INTUBATED >24 HOURS, RECOMMEND TO BEGIN ALTERNATIVE NUTRITION SUPPORT OF GLUCERNA 1.5 @ 20 ML/HR, ADVANCE 10 ML q 6 HOURS TO GOAL RATE OF 40 ML/HR + SEDATION + SUGAR-FREE PROSTAT TID -TOTAL PROVIDES 2514 KCAL, 124 G PRO, 730 ML FREE H20 ADD FREE H20 FLUSHES PER MD 2' EDEMA NOTED 3. ONCE PROPOFOL D/C'D, RECOMMEND ALTERNATIVE NUTRITION SUPPORT OF GLUCERNA 1.5 @ 20 ML/HR, ADVANCE 10 ML q 6 HOURS TO GOAL RATE OF 60 ML/HR -PROVIDES 2160 KCAL, 119 G PRO, 1094 ML FREE H20 ADD FREE H20 FLUSHES PER MD 4. REPLETE LYTES NEEDED-K+ LOW RD WILL F/U PER PROTOCOL PT IS SEVERELY COMPROMISED Respectfully, DREA PARRY MS, RD, LD [facility] cc: client file
--- NOTE | ~2017-03-23 | CR72 ---
[facility] A Service of [facility] & [facility] RADIOLOGY TEXT RESULTS PATIENT: SHANTELL OSORIO LOCATION: [address] : [birth year] UNIT #: [id number] AGE: [address]: Rekha Thibodeaux MD SEX: M ORDER DR: [id number] [facility] [address] [facility] [place] [facility]. [place], [place] [address] [id number] I MR#: [id number] Acc #: [id number] NAME: SHANTELL OSORIO. : 1960 SEX: M STUDY DATE/TIME: 03/23/2017 22:23 UNIT: [facility] ROOM: [facility] STUDY DESCRIPTION: CR Chest Single View Portable Attending Physician: Rekha Thibodeaux M.D. Referring Physician: Fermín Cao M.D. Ordering Physician: Ed Alphonso King M.D. Primary Care Physician: No Primary Care Physician MEDICAL IMAGING REPORT This report is preliminary unless electronic signature is present EXAM Single view chest. INDICATIONS Respiratory failure. FINDINGS Single portable AP view of the chest compared to 03/13/2017. Endotracheal tube is insufficient approximately 5 cm above the mandeep. The heart and mediastinal contours are unchanged. There is some mild bibasilar atelectasis. Chronic interstitial opacities are similar to the prior study. IMPRESSION 1. Endotracheal tube approximately 5 cm above the mandeep. 2. Mild bibasilar atelectasis. 3. Chronic interstitial opacities are unchanged from the prior study. Dictated by... Connor Love M.D. THIS IS AN ELECTRONICALLY VERIFIED REPORT Connor Love M.D. at 03/24/2017 8:02 PM KEYLA/kyra TD: 03/24/2017 19:45 JOB #: [id number] MEDICAL IMAGING REPORT Page 1 of 1 COPY
--- NOTE | ~2017-03-23 | CO ---
Unit #: [id number] #: [id number] Patient: MIGUELITO OSORIO [id number] [facility]. [place], [place] [address] [id number] I MR#: [id number] NAME: MIGUELITO OSORIO. ROOM: 568 Age: 56 Sex: M Admission Date: 03/24/2017 : 1960 Attending Physician: Rekha Thibodeaux M.D. Primary Care Physician: Primary Care Physician No Consultation Date: 03/25/2017 CONSULTATION REPORT REASON FOR CONSULTATION Depression and suicidal ideation. HISTORY OF PRESENT ILLNESS Miguelito is a 56-year-old male dressed in hospital attire, seen in room 558, bed 1 at [facility] on 03/25/2017 with the above-mentioned complaint. The patient reported feeling sad, depressed, feeling of hopelessness, having suicidal ideation in the last 6 weeks. The patient reports never received any treatment for depression and anxiety. The patient reported multiple stressors, multiple health conditions. The patient has a history of depression, diabetes, pancreatitis, hypertension, COPD, sleep apnea. The patient reports he uses oxygen 2 L at all day. The patient is currently having suicidal ideation, has a sitter, somewhat agitated, anxious, nervous. Denied any use of any drugs or alcohol. PAST PSYCHIATRIC HISTORY Remarkable for history of depression and anxiety, but no history of any previous suicide attempt or any inpatient treatment. PAST MEDICAL HISTORY History of chronic respiratory failure; COPD, oxygen dependent; chronic kidney disease, stage III; obstructive sleep apnea, on CPAP; history of chronic back pain; obesity; benign prostatic hypertrophy; diabetes; pancreatitis; hypertension; morbid obesity. MEDICATION HISTORY The patient is on Flomax, amitriptyline, Zantac, Spiriva, Levemir, Humalog, Lasix, finasteride, Zestril, Glucophage, Lopressor, ProAir, Percocet, prednisone. FAMILY HISTORY AND SOCIAL HISTORY The patient reports that he has a poor support system. No history of abuse. No history of any substance abuse. REVIEW OF SYSTEMS Complete review of systems unremarkable except as mentioned above. The patient's vital signs; temperature 97.9, pulse 109, respirations 18, blood pressure 179/93, oxygen saturation 93%. The patient is receiving oxygen through nasal cannula. MENTAL STATUS EXAMINATION General appearance; the patient is moderately obese, dressed casually in Unit #: [id number] #: [id number] Patient: MIGUELITO OSORIO [facility] attire. Attention span and concentration, poor. Speech, rapid. Orientation in self and place. Oriented in time, place, and person. Mood and affect, sad and depressed. Thought process, coherent. Thought content; denied any homicidal ideation, but suicidal ideation, no plan, guarded and paranoid. Recent and remote memory, fair. Language, intact. Fund of knowledge, fair. Insight and judgment, fair to slightly impaired. DIAGNOSES Psychiatric: Major depressive disorder, recurrent, severe, F33.2; anxiety disorder, not otherwise specified, F40.01; rule out bipolar mood disorder. Secondary diagnosis: Deferred. Medical diagnosis: Please refer to H and P. Stressors: Psychosocial stressors. ASSESSMENT/PLAN 1. Supportive psychotherapy and psychoeducation were provided to the patient. 2. Educated about benefits and side effects of medication and course and prognosis of illness. 3. Advised Ativan 1 mg now dose and advised the patient to be stabilized and transfer to inpatient psychiatric hospital. Advised Zyprexa 5 mg at bedtime for mood stabilization, Cymbalta 30 mg daily for depression. We will continue to follow and consider transferring to inpatient psychiatric unit once the patient is medically stable. Please feel free to call if any questions. Telephone number is [phone]. Dictated by... Jose Carty/ivette TD: 03/26/2017 02:23 JOB #: [id number] CONSULTATION REPORT Page 1 of 1 X Wilton Cowart MD X CONSULTATION REPORT
--- NOTE | ~2017-03-23 | CR72 ---
[facility] A Service of [facility] & [facility] RADIOLOGY TEXT RESULTS PATIENT: SHANTELL OSORIO LOCATION: [facility] 568-01 : [birth year] UNIT #: [id number] AGE: [address]: Rekha Thibodeaux MD SEX: M ORDER DR: [id number] [facility] [address] [facility]. [place], [place] [address] [id number] I MR#: [id number] Acc #: [id number] NAME: SHANTELL OSORIO. : 1960 SEX: M STUDY DATE/TIME: 03/25/2017 03:37 UNIT: [facility] ROOM: [facility] STUDY DESCRIPTION: CR Chest Single View Portable Attending Physician: Rekha Thibodeaux M.D. Ordering Physician: Giovanny Self M.D. Primary Care Physician: Primary Care Physician No MEDICAL IMAGING REPORT This report is preliminary unless electronic signature is present EXAM Portable chest 03/25 03:37 INDICATIONS Respiratory failure for 1 day. Overdose. FINDINGS AP portable chest compared with 03/24/2017. Left IJ line tip in the SVC. Patient has been extubated and the NG tube has been removed. There is atelectasis in the bases, which overall is slightly improved. There is a small volume of left pleural fluid. No pneumothorax. Dictated by... Milan Pineda Jr., M.D. THIS IS AN ELECTRONICALLY VERIFIED REPORT Milan Pineda Jr., M.D. at 03/26/2017 3:15 AM RLK/barrington TD: 03/25/2017 21:57 JOB #: [id number] MEDICAL IMAGING REPORT Page 1 of 1 COPY
--- NOTE | ~2017-03-23 | CR72 ---
[facility] A Service of [facility] & [facility] RADIOLOGY TEXT RESULTS PATIENT: SHANTELL OSORIO LOCATION: [address] [place] [address] : [birth year] UNIT #: [id number] AGE: [address]: Rekha Thibodeaux MD SEX: M ORDER DR: [id number] [facility] [address] [facility]. [place], [place] [address] [id number] MR#: [id number] Acc #: [id number] NAME: SHANTELL OSORIO. : 1960 SEX: M STUDY DATE/TIME: 03/23/2017 23:38 UNIT: [facility] ROOM: [facility] STUDY DESCRIPTION: CR Chest Single View Portable Attending Physician: Rekha Thibodeaux M.D. Ordering Physician: Ambrose Gonzalez M.D. Primary Care Physician: No Primary Care Physician MEDICAL IMAGING REPORT This report is preliminary unless electronic signature is present EXAM Portable chest 03/23/17 at 23:38 INDICATIONS Shortness of air. Endotracheal tube and central line placement today. TECHNIQUE AP portable chest compared with 03/23/2017 at 22:23 hours. FINDINGS A new left IJ line tip is in the right atrium. ET tube mid trachea. No pneumothorax is identified. Heart size stable. There is increased atelectasis in both bases. Dictated by... Milan Pineda Jr., M.D. THIS IS AN ELECTRONICALLY VERIFIED REPORT Milan Pineda Jr., M.D. at 03/25/2017 4:55 AM SANDEEP/james TD: 03/24/2017 21:17 JOB #: [id number] MEDICAL IMAGING REPORT Page 1 of 1 COPY
[~2017-03-23 21:47] MED LIST changes: +AMITRIPTYLINE150 MG PO; +FINASTERIDE5 M1 PO; +HUMALOG KW100 UNIT/1 SUBQ; +KCL PO; +LASIX20 MG PO; +LEVEMIR FL100 UNIT/1 SUBQ; +LISINOPRIL PO; +METFORMIN PO; +PANTOPRAZOLE SO40 MG PO; +PATIENT'S PHARMACY; +PERCOCET 5/321 UDTAB PO; +PREDNISONE PO; +PREDNISONE10 M1 PO; +SPIRIVA RESPIMAT4 G1 INH; +ZANTAC150 M1 PO
[2017-03-23 23:04] LABS: ARTERIAL BLD GAS O2 SATURATION 91.6 % (90.0-100.0); ARTERIAL BLOOD GAS CARBOXY HB 8.2 %sat (0.0-9.0); ARTERIAL BLOOD GAS HCO3 36.9 mmol/L; ARTERIAL BLOOD GAS MET HB 0.7 %sat (0.0-2.0); ARTERIAL BLOOD GAS pH 7.418 (7.350-7.450)
[2017-03-23 23:05] LABS: ARTERIAL BLOOD GAS ART SITE RIGHT BRACHIAL; ARTERIAL BLOOD GAS DELIVERY VENT; ARTERIAL BLOOD GAS PCO2 57.2 mmHg (35.0-45.0); ARTERIAL BLOOD GAS VENT MODE AC; ARTERIAL DRAW? YES
[2017-03-23 23:37] LABS: AMPHETAMINE NEG (NEG); BARBITURATES NEG (NEG); BENZODIAZEPINES POS (NEG); COCAINE NEG (NEG); MARIJUANA NEG (NEG); OPIATES NEG (NEG); TRICYCLIC ANTIDEPRESSANTS POS (NEG); U METHADONE NEG (NEG)
[2017-03-24 00:12] LABS: ALBUMIN SERUM 3.8 g/dL (3.5-5.0); ALKALINE PHOSPHATASE 65 U/L (32-92); ALT (SGPT) 34 U/L (10-40); AST (SGOT) 16 U/L (10-42); BILIRUBIN, DIRECT 0.1 mg/dL (0.0-0.2); BILIRUBIN,INDIRECT 0.4 mg/dL (0.0-0.9); BILIRUBIN,TOTAL 0.5 mg/dL (0.2-2.0); BLOOD UREA NITROGEN 23 mg/dL (9-23); BUN/CREATININE RATIO 19.16; CALCIUM SERUM 8.7 mg/dL (8.4-10.2); CARBON DIOXIDE 36 mmol/L (22-31); CHLORIDE 98 mmol/L (100-111); CREATININE SERUM 1.2 mg/dL (0.6-1.4); GLOM FILT RATE Estimated 67.2 mL/min (>60); GLUCOSE FASTING 194 mg/dL (70-110); POTASSIUM 3.3 mmol/L (3.5-5.1); PROTEIN TOTAL SERUM 7.2 g/dL (6.0-8.3); SALICYLATE <4.0 mg/dL; SODIUM 145 mmol/L (135-145)
[2017-03-24 00:44] LABS: ACETAMINOPHEN <10 ug/mL; ALCOHOL BLOOD <5 mg/dL ([, 0])
[2017-03-24 03:09] LABS: BASOPHIL# 0.1 X10e3 (0-0.3); BASOPHIL% 0.7 % (0-2.5); EOSINOPHIL% 0.5 % (0.0-7.0); HEMATOCRIT 34.3 % (38.0-50.0); LYMPHOCYTE# 1.4 X10e3 (1.0-3.5); LYMPHOCYTE% 17.3 % (17.0-45.0); MEAN CELL VOLUME 78.7 FL (83-96); MEAN CORPUSCULAR HEMOGLOBIN 25.2 PG (28-34); MEAN PLATELET VOLUME 8.2 FL (6.5-11.5); MONOCYTE# 0.4 X10e3 (0-1.0); MONOCYTE% 5.6 % (3.0-12.0); NEUTROPHIL# 6.1 X10e3 (1.5-7.1); NEUTROPHIL% 75.9 % (40-75); PLATELET COUNT 106 X10e3 (140-420); RED BLOOD COUNT 4.36 X10e (3.90-5.60); RED CELL DISTRIBUTION WIDTH 19.4 % (11.0-15.5)
[2017-03-24 03:11] LABS: DIFF IND NO
[2017-03-24 03:32] LABS: ALBUMIN SERUM 3.4 g/dL (3.5-5.0); BILIRUBIN,TOTAL 0.3 mg/dL (0.2-2.0); BUN/CREATININE RATIO 16.92; CALCIUM SERUM 8.4 mg/dL (8.4-10.2); CREATININE SERUM 1.3 mg/dL (0.6-1.4); MAGNESIUM 1.8 mg/dL (1.6-3.0); POTASSIUM 3.2 mmol/L (3.5-5.1); PROTEIN TOTAL SERUM 6.4 g/dL (6.0-8.3)
[2017-03-24 03:50] LABS: ARTERIAL BLD GAS O2 SATURATION 92.6 % (90.0-100.0); ARTERIAL BLOOD GAS CARBOXY HB 3.4 %sat (0.0-9.0); ARTERIAL BLOOD GAS MET HB 0.8 %sat (0.0-2.0); ARTERIAL BLOOD GAS PO2 83.1 mmHg (80.0-100); ARTERIAL BLOOD GAS pH 7.443 (7.350-7.450)
[2017-03-24 03:54] LABS: ARTERIAL BLOOD GAS ALLEN TEST NORMAL; ARTERIAL BLOOD GAS ART SITE RIGHT RADIAL; ARTERIAL BLOOD GAS DELIVERY VENT; ARTERIAL BLOOD GAS PCO2 51.3 mmHg (35.0-45.0); ARTERIAL BLOOD GAS VENT MODE A/C; ARTERIAL DRAW? YES
[2017-03-24 04:00] LABS: %MB 2.8 % (0.0-4.0)
[2017-03-24 05:51] LABS: URINE APPEARANCE CLOUDY; URINE BILIRUBIN NEG (NEG); URINE BLOOD TRACE (NEG); URINE COLOR YELLOW; URINE GLUCOSE NEG (NEG); URINE KETONE NEG (NEG); URINE LEUKOCYTE ESTERASE NEG (NEG); URINE NITRATE NEG (NEG); URINE PH 5.5 (5-8); URINE PROTEIN TRACE (NEG); URINE SPECIFIC GRAVITY 1.028 (1.003-1.035); URINE UROBILINOGEN 0.2 MG/DL (NEG)
[2017-03-24 05:53] LABS: URINE BACTERIA AUWI NEG (NEGATIVE); URINE SQUAMOUS EPITHELIAL CELL NONE SEEN /[HPF]; UWBCS1 AUWI 0-2 (0-5)
[2017-03-24 05:57] LABS: CULTURE INDICATED? NO
[2017-03-24 06:16] LABS: SALICYLATE <4.0 mg/dL
[2017-03-24 06:19] LABS: ACETAMINOPHEN <10 ug/mL
[2017-03-24 15:07] LABS: ARTERIAL BLD GAS O2 SATURATION 94.7 % (90.0-100.0); ARTERIAL BLOOD GAS CARBOXY HB 1.2 %sat (0.0-9.0); ARTERIAL BLOOD GAS HCO3 35.7 mmol/L; ARTERIAL BLOOD GAS MET HB 0.8 %sat (0.0-2.0); ARTERIAL BLOOD GAS PO2 85.3 mmHg (80.0-100)
[2017-03-24 15:09] LABS: ARTERIAL BLOOD GAS ALLEN TEST NORMAL; ARTERIAL BLOOD GAS ART SITE LEFT RADIAL; ARTERIAL BLOOD GAS DELIVERY CPAP; ARTERIAL BLOOD GAS PCO2 55.1 mmHg (35.0-45.0); ARTERIAL BLOOD GAS VENT MODE CPAP; ARTERIAL DRAW? YES
[2017-03-25 03:38] LABS: ARTERIAL BLD GAS O2 SATURATION 92.9 % (90.0-100.0); ARTERIAL BLOOD GAS CARBOXY HB 1.2 %sat (0.0-9.0); ARTERIAL BLOOD GAS HCO3 31.1 mmol/L; ARTERIAL BLOOD GAS MET HB 0.7 %sat (0.0-2.0); ARTERIAL BLOOD GAS PCO2 50.8 mmHg (35.0-45.0); ARTERIAL BLOOD GAS PO2 74.4 mmHg (80.0-100); ARTERIAL BLOOD GAS pH 7.395 (7.350-7.450)
[2017-03-25 03:39] LABS: ARTERIAL BLOOD GAS ALLEN TEST NORMAL; ARTERIAL BLOOD GAS ART SITE RIGHT RADIAL; ARTERIAL BLOOD GAS DELIVERY NASAL CANNULA; ARTERIAL DRAW? YES
[2017-03-25] MEDS ORDERED: FINASTERIDE5 M1 PO (03:47)
[2017-03-25] MEDS ORDERED: ZANTAC150 MG PO (03:48)
[2017-03-25] MEDS ORDERED: PANTOPRAZOLE SO40 MG PO (03:49)
[2017-03-25] MEDS ORDERED: PERCOCET5/325 PO (03:49)
[2017-03-25 03:50] LABS: HEMATOCRIT 33.3 % (38.0-50.0); HEMOGLOBIN 10.3 gm/dL (13.0-16.0); LYMPHOCYTE# 0.4 X10e3 (1.0-3.5); LYMPHOCYTE% 3.5 % (17.0-45.0); MEAN CELL VOLUME 78.6 FL (83-96); MEAN CORPUSCULAR HEMOGLOBIN 24.4 PG (28-34); MEAN PLATELET VOLUME 7.8 FL (6.5-11.5); MONOCYTE# 0.3 X10e3 (0-1.0); MONOCYTE% 2.3 % (3.0-12.0); NEUTROPHIL# 11.8 X10e3 (1.5-7.1); NEUTROPHIL% 94.2 % (40-75); RED BLOOD COUNT 4.24 X10e (3.90-5.60); RED CELL DISTRIBUTION WIDTH 19.5 % (11.0-15.5)
[2017-03-25] MEDS ORDERED: HUMALOG100 UNIT/1 SUBQ (03:52)
[2017-03-25 03:53] LABS: DIFF IND NO; PLATELET COUNT 170 X10e3 (140-420); WHITE BLOOD COUNT 12.5 X10e3 (4.0-10.5)
[2017-03-25] MEDS ORDERED: LEVEMIR SUBQ (03:55)
[2017-03-25] MEDS ORDERED: ZESTRIL5 MG PO (03:55)
[2017-03-25] MEDS ORDERED: LASIX PO (03:56)
[2017-03-25] MEDS ORDERED: LOPRESSOR PO (03:56)
[2017-03-25] MEDS ORDERED: METFORMIN HCL500 M1 PO (03:57)
[2017-03-25] MEDS ORDERED: AMITRIPTYLINE150 MG PO (03:57)
[2017-03-25] MEDS ORDERED: SPIRIVA RESPIMAT4 G1 INH (03:58)
[2017-03-25] MEDS ORDERED: FLOMAX0.4 M1 PO (03:59)
[2017-03-25] MEDS ORDERED: PROAIR RESPICL90 MCG INH ×2 (04:01→04:40)
[2017-03-25 04:33] LABS: ALBUMIN SERUM 3.4 g/dL (3.5-5.0); BILIRUBIN,TOTAL 0.5 mg/dL (0.2-2.0); CALCIUM SERUM 8.2 mg/dL (8.4-10.2); GLOM FILT RATE Estimated 83.8 mL/min (>60); MAGNESIUM 2.3 mg/dL (1.6-3.0); POTASSIUM 3.8 mmol/L (3.5-5.1); PROTEIN TOTAL SERUM 6.7 g/dL (6.0-8.3)
[2017-03-25] MEDS ORDERED: PROAIR HFA8.5 GM INH (04:39)
[2017-03-26 06:58] LABS: HEMATOCRIT 34.5 % (38.0-50.0); HEMOGLOBIN 10.9 gm/dL (13.0-16.0); MEAN CELL VOLUME 78.5 FL (83-96); MEAN CORPUSCULAR HEMOGLOBIN 24.7 PG (28-34); MEAN CORPUSCULAR HGB CONC 31.5 g/dL (30-36); RED BLOOD COUNT 4.39 X10e (3.90-5.60); RED CELL DISTRIBUTION WIDTH 19.3 % (11.0-15.5)
[2017-03-26 07:32] LABS: CALCIUM SERUM 8.8 mg/dL (8.4-10.2); GLOM FILT RATE Estimated 83.8 mL/min (>60); MAGNESIUM 2.3 mg/dL (1.6-3.0); POTASSIUM 4.7 mmol/L (3.5-5.1)
== END 2017-03-27 16:15 | DRG 917 ==
LOC: CED 21:47 → CEDOF 03-24 00:04 → C5C 03-24 00:04 → CICCU2 03-24 01:46 → C5C 03-25 13:07
PROVIDERS: Emergency Medicine; Family Medicine; Internal Medicine
PROC: 0BH17EZ Insertion of Endotracheal Airway into Trachea, Via Natural or Artificial Opening (ICD-10-PCS; principal; 2017-03-24)
PROC: 5A1935Z Respiratory Ventilation, Less than 24 Consecutive Hours (ICD-10-PCS; 2017-03-24)
DX: T43.012A Poisoning by tricyclic antidepressants, intentional self-harm, initial encounter (principal); J96.20 Acute and chronic respiratory failure, unspecified whether with hypoxia or hypercapnia; J69.0 Pneumonitis due to inhalation of food and vomit; F33.2 Major depressive disorder, recurrent severe without psychotic features; J44.0 Chronic obstructive pulmonary disease with (acute) lower respiratory infection; L03.116 Cellulitis of left lower limb; N18.4 Chronic kidney disease, stage 4 (severe); R45.851 Suicidal ideations; J44.1 Chronic obstructive pulmonary disease with (acute) exacerbation; I87.8 Other specified disorders of veins; Z99.81 Dependence on supplemental oxygen; G47.33 Obstructive sleep apnea (adult) (pediatric); I12.9 Hypertensive chronic kidney disease with stage 1 through stage 4 chronic kidney disease, or unspecified chronic kidney disease; N40.0 Benign prostatic hyperplasia without lower urinary tract symptoms; M54.9 Dorsalgia, unspecified; G89.29 Other chronic pain; F41.9 Anxiety disorder, unspecified; E66.01 Morbid (severe) obesity due to excess calories; Z68.38 Body mass index [BMI] 38.0-38.9, adult; Z79.4 Long term (current) use of insulin
CPT/HCPCS: 31500; 36415; 36556; 36600; 51702; 71010; 80048; 80053; 80076; 80307; 81003; 82550; 82553; 82803; 82947; 83605; 83735; 83880; 84132; 84484; 85025; 85027; 87070; 87205; 92610; 93005; 94002; 94003; 94640; 94660; 94760; 99291; C9113; G0480; G8996-GN; G8997-GN; G8998-GN; J0330; J0360; J1170; J1650; J1815; J2250; J2270; J2543; J2920; J2930; J3475